=== PATIENT | female | born 1955 | race Caucasian/White ===

== ENCOUNTER 2022-08-16 07:27 | Emergency (ER) | payer MEDICARE, SELFPAY ==
[2022-08-16 07:38] VITALS: BP 128/76; PULSE 84; RESP 16; O2SAT 100; BMI 29.2
--- NOTE | 2022-08-16 07:45 | ED_ITS ---
HPI - Extremity Injury (Lower) General: Chief Complaint: Extremity Injury, Lower Stated Complaint: groin pain, left leg numbness Time Seen by Provider: 08/16/22 07:30 Source: patient Mode of arrival: wheelchair Limitations: no limitations History of Present Illness: Patient is a 67-year-old female presents to ED today with a complaint of left hip pain. She states 2 days ago she was getting into a vehicle and states as she was rotating her body to get into the vehicle she heard a pop in her left hip. She states following this they had went to the park to do some walking and states she walked about 0.5 miles before the pain became too bad that she had to be helped back to the vehicle. Patient states pain has persisted since that initial injury. She complains of some paresthesias to her anterior medial left thigh. She has not noticed any color/temperature changes to the extremity. She does not have any pain apart from her hip joint. Denies back pain. MD complaint: hip injury Onset (ago): day(s) Injury: Left: hip Place: street/outdoors Severity: moderate Relieving factors: immobilization Exacerbating factors: weight bearing and movement Associated symptoms: Reports no associated symptoms Other symptoms: none Review of Systems Const: Denies: fever(s), chills, body aches, fatigue or malaise Card: Denies: chest pain Resp: Denies: dyspnea GI: Denies: abdominal pain Musc: Reports: joint pain (L hip); Denies: neck pain, back pain, extremity pain, extremity swelling, joint swelling, joint redness or joint warmth Skin/Breast: Denies: rash Neuro: Reports: difficulty walking (secondary to pain); Denies: headache(s), numbness in extremities, weakness in extremities, sensory changes or frequent falls Physical Exam Const: COMMON NORMALS: no acute distress, average body habitus, patient oriented x3, no limitations, healthy appearing, alert and well nourished GENERAL APPEARANCE: cooperative ORIENTATION/CONSCIOUSNESS: Yes awake, Yes oriented to person, Yes oriented to place and Yes oriented to time Resp: COMMON NORMALS: normal respiratory effort and clear to auscultation bilaterally AUSCULTATION: clear to auscultation bilaterally Cardio: COMMON NORMALS: regular rate and regular rhythm RATE: regular rate RHYTHM: regular rhythm GI: COMMON NORMALS: Normal to inspection, nondistended, normoactive bowel sounds present, Soft to palpation and non-tender PALPATION: Yes Soft to palpation : COMMON NORMALS: Yes no CVA tenderness BLADDER/KIDNEY EXAM: Yes no CVA tenderness Back/Pelvis: COMMON NORMALS: no CVA tenderness, thoracic and lumbar spine normal to inspection, no thoracic nor lumbar tenderness and straight leg raise negative bilaterally THORACIC SPINE/UPPER BACK: No thoracic spinal tenderness, No paraspinal muscle tenderness and No paraspinal muscle spasm LUMBAR SPINE/LOWER BACK: No lumbar spinal tenderness, No paraspinal muscle tenderness, No paraspinal muscle spasm and Yes straight leg raise negative bilaterally PELVIS: Yes buttock abnormal Buttock abnormal laterality: left Left buttock abnormal details: tenderness and Yes sciatic notch tenderness SACROILIAC JOINTS: Yes SI joint(s) abnormal SI joint details: tender to palpation SACRUM: no tenderness COCCYX: no tenderness Extremity: COMMON NORMALS: normal to inspection, capillary refill normal, no joint enlargement, no clubbing, cyanosis or edema, no calf tenderness and no pedal edema GENERAL: Yes normal exam except as noted LEFT LOWER EXTREMITY: Yes hip joint (TTP L groin as well and posteriorly; no lateral tenderness) Left hip: Yes ROM (full ROM but painful flexion and rotational movements ) and Yes neurovascular exam (normal) OTHER: DP/PT pulses are easily palpable; cap refill is brisk Neuro: COMMON NORMALS: patient oriented x3, moves all extremities, no focal motor deficits and no sensory deficits noted SENSORIUM/ORIENTATION: Yes alert, Yes oriented to person, Yes oriented to place and Yes oriented to time GAIT: Yes Other gait observations present (was able to transfer from wheelchair to bed without assistance ) MOTOR EXAM: 5/5 motor strength present throughout Skin: COMMON NORMALS: no rashes or lesions noted GENERAL SKIN EXAM: no rashes or lesions noted Course Vital Signs: Vital signs: Vital Signs Pulse Rate 78 08/16/22 07:48 Respiratory Rate 16 08/16/22 07:48 Blood Pressure 128/76 08/16/22 07:48 Pulse Oximetry 100 08/16/22 07:48 Oxygen Delivery Me thod Room Air 08/16/22 07:48 MDM - Extremity Injury (Lower) Medical Decision Making XR negative. Will place on NSAIDS/steroids and get patient follow up with PCP. Return to ED precautions given. Discharge Plan Discharge Patient Disposition: Home Clinical Impression: Acute pain of left hip Condition: Stable Prescriptions: New Medrol (Osmin) 4 mg tablets,dose pack See Rx Instructions .ROUTE .COMPLEX Qty: 21 0RF Rx Instructions: orally per package directions naproxen 500 mg tablet 500 mg PO BID PRN (Reason: pain) Qty: 14 0RF Discharge Orders: Discharge ED (Routine); Ordered 08/16/22 Ordered By: Theodora Soto Activity Restrictions/Additional Instructions: As we discussed case management should contact you to get you set up with a primary care provider for further follow-up and evaluation of your left hip pain. You may use prescribed medications as directed for treatment. You may also use ice, heat, and gentle stretching. 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
--- NOTE | 2022-08-16 07:45 | XRR_ITS ---
PROCEDURE INFORMATION: Exam: XR Left Hip Exam date and time: 08/16/2022 7:50 AM Age: 67 years old Clinical indication: Injury or trauma; Fall; Blunt trauma (contusions or hematomas); Left; Hip; Additional info: Injury/pain; One view pelvis too please TECHNIQUE: Imaging protocol: Radiologic exam of the left hip. Views: 2 or 3 views hip with pelvis when performed. COMPARISON: No relevant prior studies available. FINDINGS: Bones/joints: The visualized pelvis is grossly intact. The hip joint maintains normal alignment. No proximal femoral fracture identified. Soft tissues: Unremarkable. XR/XR hip LT 2-3V wo/w pel* [id number] IMPRESSION: No fracture identified.
[2022-08-16 07:48] VITALS: BP 128/76; PULSE 78; RESP 16; O2SAT 100
[2022-08-16] MEDS: ketorolac 30 mg/mL INJ 15 MG IM (08:24)
[2022-08-16] MEDS: dexamethasone 10 mg/mL INJ 6 MG IM (08:25)
--- NOTE | 2022-08-16 10:16 | DCPLANNER ---
Addendum entered by Jennifer Sanchez 08/29/22 08:23: Patient had an appointment scheduled with Dr. Beasley at [facility] to est care - patient did attend appointment. Addendum entered by Jennifer Sanchez 08/24/22 08:59: This appointment was rescheduled Original Note: manager machine had message to speak with patient about getting established with a primary care physician. Case lexi spoke with patient, she stated that she would like help in getting established with a primary care physician. manager machine called [facility], spoke with Daya, gave clinic patients information. A follow up appointment was scheduled for patient for , August 23, 2022 at 1:[address] Frazier. manager machine gave patient the appointment information.
== END 2022-08-16 08:32 | disposition home or self-care (01) ==
PROVIDERS: Emergency Provider Physician Assistant
DX: M25.552 Pain in left hip (principal)
CPT/HCPCS: 73502; 96372; 99284; J1100; J1885

== ENCOUNTER → 2022-08-24 13:49 | Outpatient (BNVA) | payer MEDICARE, SELFPAY | PROVIDERS: Visit Provider Family Medicine | DX: E03.9 Hypothyroidism, unspecified (principal) | CPT/HCPCS: 80053; 80061; 81000; 84439; 84443; 85025 ==

== ENCOUNTER → 2022-09-24 14:59 | Outpatient (BNVA) | payer MEDICARE, SELFPAY | PROVIDERS: PCP Family Medicine; Referring Provider Family Medicine; Visit Provider Otolaryngology | DX: D11.9 Benign neoplasm of major salivary gland, unspecified (principal) | CPT/HCPCS: 99204; 99205 ==

== ENCOUNTER 2022-10-11 05:20 | Day surgery (SDC) | payer MEDICARE, MEDICAID, SELFPAY ==
[2022-10-10 15:53] VITALS: BMI 30.2
[2022-10-11] VITALS (9 sets, daily range): BP systolic 122–148; BP diastolic 49–74; PULSE 51–91; RESP 16–17; TEMP 37; O2SAT 90–100
[2022-10-11] MEDS: sodium chloride 0.9% 1,000 ML 30 ML IV (06:21)
--- NOTE | 2022-10-11 07:03 | P.ANESASSM_ITS ---
Pre-Anesthetic Assessment Height/Weight: Height 1.55 m Weight 72.575 kg Temp Pulse Resp BP Pulse Ox O2 Del Method 98.6 F 51 L 17 136/49 98 Room Air 10/11/22 06:08 10/11/22 06:08 10/11/22 06:08 10/11/22 06:08 10/11/22 06:08 10/11/22 06:08 Preop Diagnosis: Right parotid Warthin's tumor Operation Date: 10/11/22 07:50 Proposed Procedures p 15835- superficial lobe parotidectomy right ride with facial nerve dissection and preservation, D11.9(Not Applicable) - Antoine Champagne MD Familial anesthetic complications: none Was Beta Phu taken within 24 hours: N/A Was Clonidine taken within 24 hours: N/A Last intake: Intake Last Liquid Date 09/30/22 Last Liquid Time 09:00 Last Solid Date 10/10/22 Last Solid Time 18:30 Social Tobacco and No alcohol Exam alert, oriented x 3, clear to auscultation bilaterally and regular rate & rhythm Airway Mallampati: Class II Dentition: full CV/HEM states had mild MS in april, stayed one night in hospital. No interventions, no medicines. 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 patient states no CP, SOB, syncope and is able to achieve > 4 METS without cardiac symptoms Metabolic Hyperlipidemia and Thyroid Disease Anesthetic Plan ASA status: 3 Anesthesia: General Risk of > 500 ml blood loss (7ml/kg in children): No Medications/Allergies Home Medications Medication Instructions Recorded Confirmed Last Taken Type naproxen 500 mg tablet 500 mg PO BID 08/24/22 10/10/22 Unknown History ropinirole 0.25 mg tablet 0.25 mg PO .qhs #30 tabs 08/24/22 10/10/22 Unknown Rx atorvastatin 40 mg tablet (Lipitor) 40 mg PO DAILY #90 tabs 08/27/22 10/11/22 10/10/22 06:30 Rx levothyroxine 50 mcg tablet 50 mcg PO DAILY #90 tabs 08/27/22 10/11/22 10/10/22 06:30 Rx (Synthroid) Allergies Allergy/AdvReac Type Severity Reaction Status Date / Time No Known Allergies Allergy Verified 10/11/22 06:05 Current Medications Generic Name Dose Route Start Last Admin Trade Name Sushila PRN Reason Stop Dose Admin Sodium Chloride 1,000 mls @ 30 mls/hr 10/11/22 06:00 10/11/22 06:21 Sodium Chloride 0.9% IV 10/12/22 05:59 30 mls/hr .Q24H ALEXI Administration PFSH Anesthesia Medical History Chronic arthritis Degenerative disc disease Fibromyalgia History of basal cell cancer History of heart attack 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 25PY no desire to quit] Alcohol intake: current Alcohol intake frequency: holidays/special occasions only Substance/Drug Use: never Lives independently: Yes Marital status: / Current occupational status: unemployed Special asif needs: No Agree to transfusion: Yes Data Anesthesia Cardiac Studies: No Data to Display
--- NOTE | 2022-10-11 07:31 | W.PM.OPSUD ---
Surgery/Procedure H&P Update DATE OF PROCEDURE: October 11, 2022 DATE H&P PERFORMED: 09/24/22 H&P UPDATE INFORMATION: I have reviewed H&P completed within last 30 days, I have examined patient prior to procedure and No changes to prior documentation CHANGES TO PREVIOUS DOCUMENTATION: No changes PREOP DIAGNOSIS: Right parotid Warthin's tumor PRIMARY INDICATION FOR PROCEDURE: Right parotid Warthin's tumor PLANNED PROCEDURE: Operation Date: 10/11/22 07:50 Proposed Procedures p 72827- superficial lobe parotidectomy right ride with facial nerve dissection and preservation, D11.9(Not Applicable) - Antoine Champagne MD
[2022-10-11] MEDS: ceFAZolin 2,000 MG in sodium chloride 0.9% (plus) 50 ML 100 MG IV (07:52)
[2022-10-11] MEDS: lidocaine-epi 2% 1.7mL Cartridge (OR Only) 8 ML XX (08:21)
[2022-10-11] MEDS: neomycin-poly-bacitracin oint 28 gm 1 APPLIC TOPICAL (08:33)
--- NOTE | 2022-10-11 10:06 | P.OP_ITS ---
Operative Report Date of procedure: October 11, 2022 Pre-op diagnosis: Preop Diagnosis Right parotid Warthin's tumor Post-op diagnosis: Same Post-op findings: Lobulated right infra parotid Warthin's tumor Procedure done: Right superficial parotidectomy with facial nerve dissection and preservation Implants: Quarter inch [place] drain Specimens removed/disposition: Right lateral parotid gland with Warthin's tumor Pathology: Same Surgeon: Antoine Champagne MD Anesthesia: General and Local Estimated blood loss: 100 mL Complications: No complications encountered Findings: Right lateral parotid gland Warthin's tumor based on scans and fine-needle aspiration. Brief History: 67-year-old female patient with a right parotid gland mass. Previous fine- needle aspiration revealed Warthin's tumor. Patient being brought to the operating room at this time to undergo right lateral parotidectomy with facial nerve dissection and preservation. The procedure its risks and complications have been explained in detail to the patient. These risks include bleeding infection numbness scarring swelling bruising recurrence need for additional treatment potential weakness or paralysis of any or all branches of the facial nerve as well as numbness of the ear and face and postauricular area which could be temporary or permanent. Potential gustatory sweating or fistula formation and more serious risk such as heart attack or stroke or not surviving the surgery. There also will likely be some degree of cosmetic change. With these things understood informed consent was granted and witnessed. Procedure: SheDescription of procedure: The patient was placed on the operating table in the supine position. Adequate general endotracheal tube anesthesia was obtained . Had a Crump catheter placed to the bladder. She received Ancef IV for prophylaxis. A timeout was accomplished identifying the patient date of plan procedure allergies fire risk and medications given. With all in agreement the procedure continued. Sign the site was noted. The patient was placed into a semirecumbent position. The face was cleansed and the area of the local injection plan. The planned incision area was infiltrated with a total of 5.1 mL of 2% Xylocaine with 1-100,000 epinephrine. The patient was then prepped and draped in usual fashion. A marking pen was used to outline the incision extending from the preauricular crease around the ear lobule and then curving into the mid neck skin crease line. The incision was created with a 15 blade carrying it down to the subcutaneous fat layer. Then the cut and coagulation mode of the Bovie were used to dissected down to the parotid fascia layer. The skin flap was raised in that plane to the anterior limits of the parotid gland. Then attention was turned to identifying the greater auricular nerve and preserving it until it inserted into the parotid gland itself. Then careful dissection was carried out from the lateral to medial direction using the tragal pointer to identify the main trunk of the facial nerve. Once this was identified with careful dissection the nerve was followed for superiorly to its extent beyond the parotid gland. This was done first with the upper 2 branches then the buccal branch was followed to its insertion and the lower branches were also followed to the exit out of the parotid gland. Hemostasis was attained carefully with the bipolar cautery after any active bleeding was noted. Ooze was controlled simply by pressure. After the gland was removed the area was irrigated with sterile water. The [place] drain was cut to size and placed to the depths over the main trunk of the facial nerve exiting the anteriormost aspect of the neck incision. This was stapled to the skin. Then the incision was closed in 2 layers using interrupted 4-0 chromic to close the subcutaneous layer. Then the skin was closed with skin july from the drain site up to the ear lobule area. The skin of the face was then closed with a running simple 5-0 nylon suture. After closure the area was cleansed with sponges and Neosporin ointment was applied. Then drapes were removed. Telfa and multiple layers of fluffs were placed over the neck to apply pressure over the face and neck. Then who Kerlix rolls were wrapped around the neck and over the forehead to apply a pressure dressing. This was taped in place. The patient was then returned to anesthesia for extubation. Patient tolerated the procedure well had an estimated blood loss of 100 mL and arrived in recovery in stable condition.
[2022-10-11] MEDS: fentaNYL 50 mcg/mL INJ 2mL IVP (10:20)
[2022-10-11] MEDS: ondansetron 2 mg/ML SDV 2 mL 4 MG IVP (10:22)
[2022-10-11] MEDS: TRAMadol 50 mg Tablet PO (11:07)
--- NOTE | 2022-10-11 12:49 | ANE.PACU2 ---
Inpatient post-anesthesia follow up: Airway intact: Yes Vital signs: Temperature 98.6 F Pulse Rate 89 Respiratory Rate 16 Blood Pressure 148/74 Pulse Oximetry 94 Oxygen Delivery Me thod Room Air Oxygen Flow Rate 4 Fraction of Inspir ed Oxygen Hydration adequate: Yes Nausea and vomiting: No Pain level: 1 Mental status: Baseline
== END 2022-10-11 11:52 | disposition home or self-care (01) ==
PROVIDERS: PCP Family Medicine; Visit Provider Otolaryngology
PROC: (CPT 42410; principal; 2022-10-11 07:40)
DX: D11.9 Benign neoplasm of major salivary gland, unspecified (principal); E78.5 Hyperlipidemia, unspecified; E03.9 Hypothyroidism, unspecified; F17.210 Nicotine dependence, cigarettes, uncomplicated
CPT/HCPCS: 42415; 51702; 88309; J0690; J1100; J2370; J2405; J2704; J3010; J3490; J7030; P9045

== ENCOUNTER 2022-10-13 07:20 | Emergency (ER) | payer MEDICARE, MEDICAID, SELFPAY ==
[2022-10-13 07:24] VITALS: BP 137/65; PULSE 83; RESP 17; TEMP 36.9; O2SAT 99; BMI 29.2
--- NOTE | 2022-10-13 07:34 | ED_ITS ---
HPI - Ear Problem General: Chief complaint: Ear Stated complaint: wound dressing problems Time Seen by Provider: 10/13/22 07:34 Source: patient Mode of arrival: ambulatory History of Present Illness: 67-year-old female who presents emergency room with a complaint of neck discomfort. She is 1 day postop excision of a Warthin's tumor on the right by Dr. Champagne she has some drainage and some neck discomfort states the tramadol t hat she was prescribed at the time of discharge is not adequately controlling her pain she denies fever sweats chills she able to speak and swallow without difficulty. She does have a Braeden drain in place which has moderate drainage on the bandage. Associated symptoms: Reports neck pain; Denies ear or mastoid pain, external ear pain, fever(s), headache(s), hearing loss, rhinorrhea or tinnitus Review of Systems Const: Denies: fever(s) or chills ENMT: Denies: ear or mastoid pain or tinnitus Card: Denies: chest pain Resp: Denies: dyspnea GI: Denies: abdominal pain, nausea or vomiting : Denies: flank pain, difficulty voiding, dysuria, urinary frequency or urinary urgency Musc: Reports: neck pain Skin/Breast: Denies: rash or pruritus Neuro: Denies: headache(s) PFSH ED PFSH: Medical History Chronic arthritis Degenerative disc disease Fibromyalgia History of basal cell cancer History of heart attack 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 25PY no desire to quit] Alcohol intake: current Alcohol intake frequency: holidays/special occasions only Substance/Drug Use: never Lives independently: Yes Marital status: / Current occupational status: unemployed Special asif needs: No Agree to transfusion: Yes Physical Exam Const: COMMON NORMALS: no acute distress GENERAL APPEARANCE: cooperative and comfortable ORIENTATION/CONSCIOUSNESS: Yes awake, Yes oriented to person, Yes oriented to place and Yes oriented to time HENMT: COMMON NORMALS: normocephalic, atraumatic and hearing grossly normal bilaterally HEAD & SCALP: normocephalic and atraumatic Neck/C-Spine: OTHER: Bulky Kerlix and Telfa dressing on incision on the right side of the neck dressing removed wound well approximated moderate drainage from the [place] drain on the Telfa no purulence no redness no erythema no fluctuant area. Resp: COMMON NORMALS: normal respiratory effort, No retractions, No use of accessory muscles and clear to auscultation bilaterally AUSCULTATION: clear to auscultation bilaterally Cardio: COMMON NORMALS: regular rate, regular rhythm and No murmurs present (Cardio) RATE: regular rate RHYTHM: regular rhythm GI: COMMON NORMALS: Soft to palpation and No hepatosplenomegaly present AUSCULTATION: Yes normoactive bowel sounds PALPATION: Yes Soft to palpation, No Tenderness to palpation present (GI), No Guarding due to palpation present (GI) and Yes No hepatosplenomegaly present Extremity: COMMON NORMALS: normal to inspection, capillary refill normal, no clubbing, cyanosis or edema, no calf tenderness and no pedal edema Neuro: SENSORIUM/ORIENTATION: Yes oriented to person, Yes oriented to place and Yes oriented to time Skin: COMMON NORMALS: no rashes or lesions noted GENERAL SKIN EXAM: no rashes or lesions noted Course Vital Signs: Vital signs: Vital Signs Temperature 98.4 F 10/13/22 07:24 Pulse Rate 83 10/13/22 07:24 Respiratory Rate 17 10/13/22 07:24 Blood Pressure 137/65 10/13/22 07:24 Pulse Oximetry 99 10/13/22 07:24 Oxygen Delivery Me thod Room Air 10/13/22 07:24 MDM - Ear Medical Decision Making Dressing changed. Gave patient prescription for hydrocodone to use for pain continue discharge instructions given by Dr. Champagne and follow-up with Ihsan as previously advised Medical Records I reviewed the patient's medical records. Lab Data I reviewed the patient's lab results. Discharge Plan Discharge Patient Disposition: Home Clinical Impression: Warthin tumor Condition: Stable Prescriptions: New hydrocodone-acetaminophen 5-325 mg tablet 1 tab PO Q6H PRN (Reason: pain) Qty: 15 0RF promethazine 25 mg tablet 25 mg PO Q6H PRN (Reason: nausea and vomiting) Qty: 12 0RF No Action naproxen 500 mg tablet 500 mg PO BID ropinirole 0.25 mg tablet 0.25 mg PO .qhs Qty: 30 0RF atorvastatin [Lipitor] 40 mg tablet 40 mg PO DAILY Qty: 90 1RF levothyroxine [Synthroid] 50 mcg tablet 50 mcg PO DAILY Qty: 90 0RF tramadol 50 mg tablet 50 mg PO Q6H PRN (Reason: pain) Qty: 30 0RF cephalexin 500 mg capsule 500 mg PO TID 10 Days Qty: 30 0RF Discharge Orders: Discharge ED (Routine); Ordered 10/13/22 Ordered By: Nicholas Sanders Referrals: Toan Beasley MD [Primary Care Provider] - Patient Instructions: Opioid Safety, Pain Management Activity Restrictions/Additional Instructions: You may use hydrocodone instead of tramadol. Promethazine for nausea or vomiting. Continue wound care as per Dr. Champagne previous discharge instructions follow-up with Dr. 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
--- NOTE | 2022-10-13 08:05 | PC.NURSE ---
pt wound redressed
== END 2022-10-13 08:10 | disposition home or self-care (01) ==
PROVIDERS: Emergency Provider Family Medicine; PCP Family Medicine
DX: D11.9 Benign neoplasm of major salivary gland, unspecified (principal); F17.210 Nicotine dependence, cigarettes, uncomplicated; Z85.89 Personal history of malignant neoplasm of other organs and systems; Z85.828 Personal history of other malignant neoplasm of skin
CPT/HCPCS: 99283

== ENCOUNTER → 2022-10-15 12:57 | Outpatient (BNVA) | payer MEDICARE, MEDICAID, SELFPAY | PROVIDERS: PCP Family Medicine; Visit Provider Otolaryngology | DX: Z48.89 Encounter for other specified surgical aftercare (principal); D11.9 Benign neoplasm of major salivary gland, unspecified | CPT/HCPCS: 99024 ==

== ENCOUNTER → 2022-10-19 11:04 | Outpatient (BNVA) | payer MEDICARE, MEDICAID, SELFPAY | PROVIDERS: PCP Family Medicine; Visit Provider Otolaryngology | DX: Z48.89 Encounter for other specified surgical aftercare (principal); D11.9 Benign neoplasm of major salivary gland, unspecified | CPT/HCPCS: 99024 ==

== ENCOUNTER → 2022-11-19 13:26 | Outpatient (BNVA) | payer MEDICARE, MEDICAID, SELFPAY | PROVIDERS: PCP Family Medicine; Visit Provider Otolaryngology | DX: Z48.89 Encounter for other specified surgical aftercare (principal); D11.9 Benign neoplasm of major salivary gland, unspecified | CPT/HCPCS: 99024 ==

== ENCOUNTER → 2022-12-31 13:16 | Outpatient (BNVA) | payer MEDICARE, MEDICAID, SELFPAY | PROVIDERS: PCP Family Medicine; Visit Provider Otolaryngology | DX: H91.90 Unspecified hearing loss, unspecified ear (principal); H93.11 Tinnitus, right ear | CPT/HCPCS: 99213 ==

== ENCOUNTER → 2023-01-10 13:30 | Outpatient (BNVA) | payer MEDICARE, MEDICAID, SELFPAY | PROVIDERS: PCP Family Medicine; Visit Provider Family Medicine | DX: M79.7 Fibromyalgia (principal) | CPT/HCPCS: 84439; 84443 ==

== ENCOUNTER → 2023-07-10 14:00 | Outpatient (BNVA) | payer MEDICARE, MEDICAID, SELFPAY | PROVIDERS: PCP Family Medicine; Referring Provider Family Medicine; Visit Provider Surgery | DX: K29.70 Gastritis, unspecified, without bleeding; R19.7 Diarrhea, unspecified | CPT/HCPCS: 99204 ==

== ENCOUNTER 2023-07-17 13:33 | Outpatient (CLI) | payer MEDICARE, MEDICAID, SELFPAY ==
--- NOTE | 2023-07-17 14:00 | MM_ITS ---
WS: [id number] BILATERAL SCREENING DIGITAL TOMOSYNTHESIS MAMMOGRAM WITH CAD HISTORY: breast CA screening COMPARISON: 12/14/2016 Bilateral CC and MLO views with tomosynthesis and synthetic mammography submitted. Computer aided det ection analyzed. Breast composition: There are scattered areas of fibroglandular density. No suspicious masses, microc alcifications or architectural distortion. Benign calcifications in each breast. IMPRESSION: MM/[place] [id number] BI-RADS: 2-Benign FOLLOW UP: 1 Year Follow-up
== END 2023-07-17 13:34 | disposition home or self-care (01) ==
LOC: RAD 13:33
PROVIDERS: PCP Family Medicine; Visit Provider Family Medicine
DX: Z12.31 Encounter for screening mammogram for malignant neoplasm of breast
CPT/HCPCS: 77063; 77067

== ENCOUNTER 2023-07-26 11:57 | Outpatient (CLI) | payer MEDICARE, MEDICAID, SELFPAY ==
--- NOTE | 2023-07-26 17:30 | CT_ITS ---
WS: [id number] LDCT LUNG CANCER SCREENING TECHNIQUE: Noncontrast CT of the chest with coronal and sagittal reformatted images. CLINICAL INFORMATION: lung cancer screening COMPARISON: None. DLP: 65.19 mGy.cm DIvol: Mean CTDIvol: 1.20 (mGy) All CT scans at [facility] use at least one of these dose optimization techniques: automat ed exposure control; mA and/or kV adjustment per patient size (includes targeted exams where dose is matched to clinical indication); or iterative reconstruction. FINDINGS: Calcified granulomas. Centrally calcified 4 mm noncalcified RIGHT upper lobe nodule. Small subpleural nodule RIGHT lower lobe measuring 3 mm. RIGHT upper lobe nodule laterally measuring 4 mm. Noncalcified nodule LEFT upper lobe measuring 5 mm. RIGHT upper lobe nodule measuring 6 mm. Noncalcif ied subpleural nodule LEFT lower lobe measuring 4 mm. Aortic calcification. Coronary calcification. No mediastinal or hilar lymphadenopathy. No axillary ly mphadenopathy. Cholecystectomy clips. Adrenal glands are normal. Splenic artery calcification. Splenic granulomas. M ild thoracic curve. Mild thoracic kyphosis. Hypertrophic changes thoracic spine. Partially visualized low-attenuation lesion LEFT kidney with lobulated LEFT kidney. Recommend further evaluation with ult rasound or contrast-enhanced CT abdomen pelvis. IMPRESSION: 1. Numerous bilateral subcentimeter pulmonary nodules some of which are calcified. A few noncalcifie d nodules largest measuring 4 to 5 mm. 2. Partially visualized low-attenuation lesion LEFT kidney with lobulated LEFT kidney. Recommend fur ther evaluation with ultrasound or contrast-enhanced CT abdomen pelvis. CT/CT lung screening [id number] LUNG-RADS: 2S-Benign Appearance or Behavior with Significant Findings FOLLOW UP: 12 Month: Continue annual screening with LDCT
== END 2023-07-26 11:58 | disposition home or self-care (01) ==
LOC: RAD 11:58
PROVIDERS: PCP Family Medicine; Visit Provider Family Medicine
DX: Z12.2 Encounter for screening for malignant neoplasm of respiratory organs (principal); F17.219 Nicotine dependence, cigarettes, with unspecified nicotine-induced disorders
CPT/HCPCS: 71271

== ENCOUNTER → 2023-08-10 12:49 | Outpatient (BNVA) | payer MEDICARE, MEDICAID, SELFPAY | PROVIDERS: PCP Family Medicine; Visit Provider Family Medicine | DX: R39.9 Unspecified symptoms and signs involving the genitourinary system (principal); N39.0 Urinary tract infection, site not specified | CPT/HCPCS: 81000; 87086 ==

== ENCOUNTER 2023-08-12 15:11 | Outpatient (CLI) | payer MEDICARE, MEDICAID, SELFPAY ==
--- NOTE | 2023-08-12 15:15 | US_ITS ---
WS: [id number] RENAL ULTRASOUND HISTORY: LEFT kidney lobules seen on LDCT COMPARISON: None available. TECHNIQUE: 2-D and color Doppler imaging of the kidney submitted. Right kidney: 9.3 cm x 4.5 cm x 4.3 cm. Cortex: 1.0 cm Normal echogenicity with no hydronephrosis or mass. Left kidney: 9.4 cm x 3.7 cm x 4.3 cm. Cortex: 1.0 cm Normal size kidney. Cortical cyst upper pole measures 1.4 cm. No solid mass. No obstruction. Aorta: Normal. Urinary Bladder: Normal distention. IMPRESSION: 1. Normal size kidneys with no hydronephrosis. 2. Small cortical cyst upper pole LEFT kidney 1.4 cm.
== END 2023-08-12 15:12 | disposition home or self-care (01) ==
LOC: RAD 15:11
PROVIDERS: PCP Family Medicine; Visit Provider Family Medicine
DX: N28.89 Other specified disorders of kidney and ureter (principal); N28.1 Cyst of kidney, acquired
CPT/HCPCS: 76770

== ENCOUNTER 2023-09-24 15:02 | Emergency (ER) | payer MEDICARE, MEDICAID, SELFPAY ==
[2023-09-24 15:03] VITALS: BP 148/76; PULSE 80; RESP 15; TEMP 36.6; O2SAT 98; BMI 29.4
[2023-09-24 15:37] LABS: Basophils % 0.5 %; Eosinophils # 0.2 10^3/uL (0.0-0.8); Eosinophils % 2.5 %; Hematocrit 41.4 % (36-47); Lymphocytes # 2.2 10^3/uL (0.8-4.8); Lymphocytes % 29.1 %; Mean Corpuscular HGB Conc 32.6 g/dL (30-55); Mean Corpuscular Hemoglobin 32.9 pg (27-33); Mean Platelet Volume 10.2 fL (7.4-10.4); Monocytes # 0.9 10^3/uL (0.2-0.9); Monocytes % 11.7 %; Neutrophils # 4.27 10^3/uL (1.8-7.7); Neutrophils % 55.9 %; Nucleated Red Blood Cells % 0 %; Platelet Count 253 10^3/cmm (157-399); Red Cell Distribution Width 12.4 % (12.1-15.1); White Blood Count 7.63 10^3/uL (3.29-11.43)
[2023-09-24 15:56] LABS: Alanine Aminotransferase 12 U/L (0-33); Albumin Level 4.2 g/dL (3.5-5.2); Alkaline Phosphatase 143 U/L (35-105); Anion Gap 17.2 (5-19); Aspartate Amino Transferase 16 U/L (0-32); Blood Urea Nitrogen 11 mg/dL (8-23); Calcium 9.4 mg/dL (8.5-10.5); Carbon Dioxide 24 mmol/L (22-29); Chloride 104 mmol/L (98-107); Creatinine Clr Calc Pharmacy 47.0727; Globulin 3.5 g/dL (1.3-4.6); Glomerular Filtration Rate 49.7 mL/min (90-130); Glucose 97 mg/dL (65-115); Lipase 71 U/L (13-60); Osmolality Calculated 291 mOsm/kg (285-295); Potassium 4.2 mmol/L (3.5-5.1); Sodium 141 mmol/L (136-145); Total Bilirubin 0.6 mg/dL (0.15-1.2); Total Protein 7.7 g/dL (6.6-8.7)
--- NOTE | 2023-09-24 16:33 | ED_ITS ---
HPI - Abdominal Pain 2 General: Chief Complaint: Abdominal Pain Stated Complaint: cant keep anything down/ hasnt eatten since Sat Time Seen by Provider: 09/24/23 16:29 History of Present Illness: 68-year-old female with history of fibro myalgia, hypothyroidism who presents to the emergency room with chronic diarrhea and vomiting. She said this been going on for several months now. She says her primary cannot really figure it out but she does have a colonoscopy and endoscopy scheduled in the near future. She was taking some medications that may have helped some but they have stopped. She says has gotten quite a bit worse over the last few days. She is moaning. She says her upper abdominal area is painful. Nothing focal. Vitals are normal on presentation. Review of Systems 2 Narrative: Constitutional symptoms: Negative except as documented in HPI. Skin symptoms: Negative except as documented in HPI. Eye symptoms: Negative except as documented in HPI. ENMT symptoms: Negative except as documented in HPI. Respiratory symptoms: Negative except as documented in HPI. Cardiovascular symptoms: Negative except as documented in HPI. Gastrointestinal symptoms: Negative except as documented in HPI. Genitourinary symptoms: Negative except as documented in HPI. Musculoskeletal symptoms: Negative except as documented in HPI. Neurologic symptoms: Negative except as documented in HPI. Psychiatric symptoms: Negative except as documented in HPI. Endocrine symptoms: Negative except as documented in HPI. 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 25PY no desire to quit] Alcohol intake: current Alcohol intake frequency: holidays/special occasions only Substance/Drug Use: never Lives independently: Yes Marital status: / Current occupational status: unemployed Special asif needs: No Agree to transfusion: Yes Physical Exam 2 Narrative: EXAM NARRATIVE: General: Alert, no acute distress. Skin: Warm, dry. Head: Normocephalic, atraumatic. Neck: Supple, trachea midline. Eye: Extraocular movements are intact. Ears, nose, mouth and throat: Tacky oral mucosa Cardiovascular: Regular, Normal peripheral perfusion. Respiratory: Lungs are clear to auscultation, respirations are non-labored, breath sounds are equal, Symmetrical chest wall expansion. Gastrointestinal: Soft, mild generalized abdominal pain, Non distended, Normal bowel sounds. Musculoskeletal: Normal ROM, no deformity. Neurological: Alert and oriented, No focal neurological deficit observed. Psychiatric: Cooperative, appropriate mood & affect. Course 2 Vital Signs: Vital signs: Vital Signs Temperature 97.8 F 09/24/23 15:03 Pulse Rate 80 09/24/23 18:48 Respiratory Rate 15 09/24/23 15:03 Blood Pressure 142/74 09/24/23 18:48 Pulse Oximetry 98 09/24/23 18:48 Oxygen Delivery Me thod Room Air 09/24/23 17:54 MDM - Abdominal Pain Medical Decision Making Medical decision making: Differential diagnosis including but not limited to and based on the above HPI, review of systems and physical exam: Basic lab work and urinalysis ordered to rule out renal failure. Hepatitis. Pancreatitis. Ultimately a CT was ordered to evaluate. Orders placed to evaluate differential diagnosis based on the above differential, HPI and physical exam Lab Review: Laboratory results were reviewed and interpreted by myself the emergency room physician. Lab work is unremarkable. White count is 7. Hemoglobin 13.5. BUN/creatinine 11 and 1.1. LFTs are normal. Lipase is normal. Urinalysis is clear. CT of the abdomen pelvis: Patient has some diverticulosis but no diverticulitis. No obstructions. No renal stones. No acute findings. This was reviewed and interpreted by myself the emergency room physician. I also reviewed the radiology report. I reviewed the patient's medical record. Reexamination: Patient appears much calmer on my entrance later. She says Ativan is the only thing that really helped today. She says she feels much better now. I discussed I will write some Ativan for her but I do not want her to take it more than once every 2 to 3 days and explained that it can be habit-forming and could make symptoms worse if she took all and ran out. No increased work of breathing. Abdominal pain seems resolved. No focal motor deficits. No altered mental status. Assessment and plan: Chronic abdominal pain Chronic diarrhea Chronic vomiting Dehydration -IV fluids, IV Pepcid, IV Zofran. Then IV Ativan. - Discharged home - Discussed findings and plan with patient. Answered any questions. - All laboratory values were reviewed and interpreted personally by myself, the ER physician - All imaging was reviewed and interpreted personally by myself, the ER physician. - Evaluation and treatment of this problem were appropriate in the emergency setting Lab Data 09/24/23 15:27 09/24/23 15:27 Labs/Radiology: Radiology Impressions Abdomen/Pelvis CT 09/24/23 16:36 IMPRESSION: 1. No acute findings. 2. Sigmoid diverticulosis Laboratory Results WBC 7.63 10^3/uL (3.29-11.43) 09/24/23 15: RBC 4.10 10^6/uL (3.85-5.65) 09/24/23 15: Hgb 13.50 g/dL (11.27-16.99) 09/24/23 15: Hct 41.4 % (36-47) 09/24/23 15: MCV 101.0 fl (85-98) H 09/24/23 15: MCH 32.9 pg (27-33) 09/24/23 15: MCHC 32.6 g/dL (30-55) 09/24/23 15:27 RDW 12.4 % (12.1-15.1) 09/24/23 15: Plt Count 253 10^3/cmm (157-399) 09/24/23 15: MPV 10.2 fL (7.4-10.4) 09/24/23 15: Neut % (Auto) 55.9 % 09/24/23 15: Lymph % (Auto) 29.1 % 09/24/23 15: Moffat % (Auto) 11.7 % 09/24/23 15: Eos % (Auto) 2.5 % 09/24/23 15: Baso % (Auto) 0.5 % 09/24/23 15: Neut # (Auto) 4.27 10^3/uL (1.8-7.7) 09/24/23 15: Lymph # (Auto) 2.2 10^3/uL (0.8-4.8) 09/24/23 15: Moffat # (Auto) 0.9 10^3/uL (0.2-0.9) 09/24/23 15: Eos # (Auto) 0.2 10^3/uL (0.0-0.8) 09/24/23 15: Baso # (Auto) 0.0 10^3/uL (0.0-0.1) 09/24/23 15: Nucleated RBC % (auto) 0 % 09/24/23 15: Nucleated RBCs # 0.0 /100WBC 09/24/23 15: Sodium 141 mmol/L (136-145) 09/24/23 15: Potassium 4.2 mmol/L (3.5-5.1) 09/24/23 15: Chloride 104 mmol/L (98-107) 09/24/23: Carbon Dioxide 24 mmol/L (22-29) 09/24/23: Anion Gap 17.2 (5-19) 09/24/23 15: BUN 11 mg/dL (8-23) 09/24/23 15: Creatinine 1.1 mg/dL (0.5-0.9) H 09/24/23 15: GFR Calculation 49.7 mL/min (90-130) L 09/24/23 15: Glucose 97 mg/dL (65-115) 09/24/23 15: Calculated Osmolality 291 mOsm/kg (285-295) 09/24/23: Calcium 9.4 mg/dL (8.5-10.5) 09/24/23 15: Total Bilirubin 0.6 mg/dL (0.15-1.2) 09/24/23 15: AST 16 U/L (0-32) 09/24/23 15: ALT 12 U/L (0-33) 09/24/23 15:27 Alkaline Phosphatase 143 U/L (35-105) H 09/24/23 15:27 Total Protein 7.7 g/dL (6.6-8.7) 09/24/23 15:27 Albumin 4.2 g/dL (3.5-5.2) 09/24/23 15: Globulin 3.5 g/dL (1.3-4.6) 09/24/23 15:27 Lipase 71 U/L (13-60) H 09/24/23 15:27 Urine Color Yellow (Yellow) 09/24/23 17:49 Urine Appearance Clear (CLEAR) 09/24/23 17:49 Urine pH 5 (5-7) 09/24/23 17:49 Ur Specific [place] 1.010 (1.005-1.030) 09/24/23 17:49 Urine Protein Neg (Negative) 09/24/23 17:49 Urine Glucose (UA) Norm (Normal) 09/24/23 17:49 Urine Ketones 1+ (Negative) H 09/24/23 17:49 Urine Blood 3+ (Negative) H 09/24/23 17:49 Urine Nitrate Negative (Negative) 09/24/23 17:49 Urine Bilirubin Neg (Negative) 09/24/23 17:49 Urine Urobilinogen Norm mg/dL (Negative) 09/24/23 17:49 Ur Leukocyte Esterase Negative (Negative) 09/24/23 17:49 Urine RBC 5-10 /hpf (0-2) H 09/24/23 17:49 Urine WBC 5-10 /hpf (0-5) H 09/24/23 17:49 Ur Squamous Epith Cells 5-10 /hpf (0-5) H 09/24/23 17:49 Ur Transition Epith Cell 0-4 /hpf 09/24/23 17:49 Amorphous Sediment Not Reportable 09/24/23 17:49 Urine Bacteria Trace /hpf (NONE) 09/24/23 17:49 Hyaline Casts 5-10 /lpf H 09/24/23 17:49 Urine Mucus None /hpf 09/24/23 17:49 Ur Oval Fat Bodies 3+ /hpf 09/24/23 17:49 All radiology interpretation(s) finalized by discharge Discharge Plan Discharge Patient Disposition: Home Clinical Impression: Chronic abdominal pain, Chronic diarrhea, Chronic vomiting, Dehydration Condition: Stable Prescriptions: New Carafate 1 gram tablet 1 g PO TID 28 Days Qty: 84 0RF Rx Instructions: with meals ondansetron 8 mg tablet,disintegrating 8 mg PO .q6 PRN (Reason: nausea and vomiting) Qty: 14 0RF Ativan 1 mg tablet 1 mg PO BID PRN (Reason: dizziness or vertigo) Qty: 20 0RF omeprazole 40 mg capsule,delayed release(DR/EC) 40 mg PO DAILY 28 Days Qty: 60 0RF No Action trazodone 50 mg tablet 75 mg PO DAILY Qty: 120 1RF Shingrix (PF) 50 mcg/0.5 mL suspension for reconstitution 0.5 ml IM ONCE Qty: 1 0RF levothyroxine [Synthroid] 50 mcg tablet 50 mcg PO DAILY Qty: 90 1RF atorvastatin [Lipitor] 40 mg tablet 40 mg PO DAILY Qty: 90 1RF nitrofurantoin monohyd/m-cryst [Macrobid] 100 mg capsule 100 mg PO Q12H 5 Days Qty: 10 0RF Rx Instructions: must administer with a meal/food diclofenac sodium [Voltaren Arthritis Pain] 1 % gel 4 g topical QID Qty: 100 1RF Rx Instructions: apply to single knee, ankle, foot; for foot includes sole/toes/top of foot fluticasone propionate [Flonase Allergy Relief] 50 mcg/actuation spray,suspension 2 spray intranasal DAILY Qty: 16 0RF Rx Instructions: administer into each nostril ropinirole 0.25 mg tablet 0.25 mg PO .qhs PRN (Reason: restless leg) Qty: 30 1RF sucralfate [Carafate] 1 gram tablet 1 g PO BID Qty: 84 0RF pantoprazole 40 mg tablet,delayed release (DR/EC) 40 mg PO BID Qty: 84 0RF conjugated estrogens 0.625 mg/gram cream 0.625 mg vaginal DAILY Qty: 30 1RF Rx Instructions: off 5 days; repeat cycle Discharge Orders: Discharge ED (Routine); Ordered 09/24/23 Ordered By: Consuelo Patterson Referrals: Toan Beasley MD [Primary Care Provider] - 4-7 days Patient Instructions: Irritable Bowel Syndrome (ED), Chronic Diarrhea (DC), Cyclic Vomiting Syndrome (ED) Activity Restrictions/Additional Instructions: Do not take the Ativan/lorazepam more than once every 2 to 3 days. Only when your symptoms are at their worst. This can become habit-forming and could make your symptoms worse if you take it too frequently. Thank you for choosing [facility] for your healthcare needs today. Please realize this is an emergency room and that we are providing you with a medical screening exam and this may not be complete and all inclusive of all the testing and or work up that you may need to determine your ailment or severity of your illness. You have been screened and evaluated and felt safe for discharge. Health conditions do change or evolve sometimes and as such it is important that you follow up with your Primary Doctor to be re checked, 3-5 days is a general good time frame for follow up. You are always welcome to return to the ED for re assessment if your symptoms are worsening or you have new concerns Coding Level of Care Code ED Dedicated [employer]
--- NOTE | 2023-09-24 16:36 | CTR_ITS ---
PROCEDURE INFORMATION: Exam: CT Abdomen And Pelvis With Contrast Exam date and time: 09/24/2023 5:02 PM Age: 68 years old Clinical indication: Patient HX: Patient denies any pain to me but says she has had nausea and has been unable to eat for weeks, patient very anxious. ; Additional info: Epigastric pain, vomiting TECHNIQUE: Imaging protocol: Computed tomography of the abdomen and pelvis with contrast. Radiation optimization: All CT scans at this facility use at least one of these dose optimization techniques: automated exposure control; mA and/or kV adjustment per patient size (includes targeted exams where dose is matched to clinical indication); or iterative reconstruction. Contrast material: OMNI 350; Contrast volume: 90 ml; Contrast route: INTRAVENOUS (IV); COMPARISON: CR XR hip LT 2-3V wo/w pel* [id number] 08/16/2022 7:50 AM RADIATION DOSE METRICS: Total DLP (mGy-cm): 590.55 FINDINGS: Lungs: Lung bases are clear. No pleural effusion. Liver: Normal. No mass. Gallbladder and bile ducts: The gallbladder has been resected. Pancreas: Normal. No ductal dilation. Spleen: Normal. No splenomegaly. Adrenal glands: Normal. No mass. Kidneys and ureters: Normal. No hydronephrosis. Stomach and bowel: Multiple diverticula involve the sigmoid colon. There is no sign of diverticulitis. Appendix: The appendix is clearly identified and is unremarkable. Intraperitoneal space: Unremarkable. No free air. No significant fluid collection. Vasculature: Unremarkable. No abdominal aortic aneurysm. Lymph nodes: Unremarkable. No enlarged lymph nodes. Urinary bladder: Unremarkable as visualized. Reproductive: Unremarkable as visualized. Bones/joints: Unremarkable. No acute fracture. Soft tissues: Unremarkable. CT/CT abdomen pelvis w con* [id number] IMPRESSION: 1. No acute findings. 2. Sigmoid diverticulosis
[2023-09-24] MEDS: sodium chloride 0.9% 1,000 ML 999 ML IV (16:51)
[2023-09-24] MEDS: famotidine 20 mg/2 mL INJ 40 MG IVP (16:52)
[2023-09-24] MEDS: ondansetron 2 mg/ML SDV 2 mL 8 MG IVP (16:54)
[2023-09-24] MEDS: iohexol 350 mg/mL 500 mL Btl (per mL) IV (17:15)
[2023-09-24] MEDS: LORazepam 2 mg/mL INJ 10 mL MDV 1 MG IV (17:50)
[2023-09-24 17:54] VITALS: BP 144/62; PULSE 83; O2SAT 96
[2023-09-24 18:30] LABS: Blood Urine 3+ (Negative); Glucose Urine UA Norm (Normal); Ketones Urine 1+ (Negative); Protein Urine Neg (Negative); Urine Appearance Clear (CLEAR); Urine Color Yellow (Yellow); pH Urine 5 (5-7)
[2023-09-24 18:31] LABS: Add Urine Microscopic? YES; Bilirubin Urine Neg (Negative); Leukocyte Esterase Urine Negative (Negative); Nitrate Urine Negative (Negative); Urobilinogen Urine Norm (Negative)
[2023-09-24 18:34] LABS: Bacteria Urine TRACE /hpf; Oval Fat Bodies Urine 3+ /hpf; Transitional Epi Cells Urine 0-4 /hpf
[2023-09-24 18:35] LABS: Add Urine Culture? No
[2023-09-24 18:48] VITALS: BP 142/74; PULSE 80; O2SAT 98
== END 2023-09-24 18:49 | disposition home or self-care (01) ==
PROVIDERS: Physician Assistant; Emergency Provider Emergency Medicine; PCP Family Medicine
DX: R10.9 Unspecified abdominal pain (principal); R19.7 Diarrhea, unspecified; R11.10 Vomiting, unspecified; E86.0 Dehydration; G89.29 Other chronic pain; F17.210 Nicotine dependence, cigarettes, uncomplicated
CPT/HCPCS: 36415; 74177; 80053; 81001; 83690; 85025; 96361; 96374; 96375; 99285; J2060; J2405; J3490; J7030; Q9967

== ENCOUNTER 2023-11-11 15:30 | Emergency (ER) | payer MEDICARE, MEDICAID, SELFPAY ==
[2023-11-11 15:33] VITALS: BP 149/68; PULSE 64; RESP 16; TEMP 36.7; O2SAT 100
--- NOTE | 2023-11-11 15:41 | XRR_ITS ---
PROCEDURE INFORMATION: Exam: XR Left Knee Exam date and time: 11/11/2023 4:10 PM Age: 68 years old Clinical indication: Injury or trauma; Fall; Blunt trauma; Knee; Left TECHNIQUE: Imaging protocol: Radiologic exam of the left knee. Views: 3 views. COMPARISON: No relevant prior studies available. FINDINGS: Bones/joints: No fracture or other acute abnormality. Minor degenerative changes are seen in the medial compartment. Soft tissues: Normal. XR/XR knee LT 3V* [id number] IMPRESSION: No acute findings.
--- NOTE | 2023-11-11 15:41 | XRR_ITS ---
PROCEDURE INFORMATION: Exam: XR Left Hip Exam date and time: 11/11/2023 4:10 PM Age: 68 years old Clinical indication: Injury or trauma; Fall; Blunt trauma (contusions or hematomas); Left; Hip TECHNIQUE: Imaging protocol: Radiologic exam of the left hip. Views: 2 or 3 views hip with pelvis when performed. COMPARISON: CT abdomen pelvis w con* [id number] 09/24/2023 5:02 PM FINDINGS: Bones/joints: Unremarkable. No acute fracture. Soft tissues: Unremarkable. XR/XR hip LT 2-3V wo/w pel* [id number] IMPRESSION: No acute findings.
--- NOTE | 2023-11-11 15:45 | W.ED.FALL ---
HPI - Fall General: Chief Complaint: Fall Stated Complaint: Fall injury to left knee Time Seen by Provider: 11/11/23 15:41 Source: patient Mode of arrival: EMS Limitations: no limitations History of Present Illness: 68-year-old female who states that she had tripped her front yard landing on her left hip states she feels like she may have strained a muscle she is having a sharp pain in her left hip that radiates down she was able to bear weight but states very painful to walk has had some slight left knee pain as well denies any other injuries from the fall denies hitting her head. 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 25PY no desire to quit] Alcohol intake: current Alcohol intake frequency: holidays/special occasions only Substance/Drug Use: never Lives independently: Yes Marital status: / Current occupational status: unemployed Special asif needs: No Agree to transfusion: Yes Physical Exam Const: COMMON NORMALS: no acute distress, patient oriented x3 and healthy appearing HENMT: COMMON NORMALS: normocephalic and atraumatic HEAD & SCALP: normocephalic and atraumatic Neck/C-Spine: COMMON NORMALS: full ROM and supple Chest: COMMONS NORMALS: normal inspection of the chest Resp: COMMON NORMALS: normal respiratory effort Cardio: COMMON NORMALS: regular rate, regular rhythm and No murmurs present (Cardio) RATE: regular rate RHYTHM: regular rhythm Extremity: COMMON NORMALS: full ROM NARRATIVE EXTREMITY EXAM: Slight tenderness to left hip no obvious deformity Neuro: COMMON NORMALS: patient oriented x3, moves all extremities and no focal motor deficits Psych: COMMON NORMALS: mental status grossly normal, Normal thought process present and cooperative THOUGHT PROCESS: Normal thought process present Skin: COMMON NORMALS: no rashes or lesions noted and no wounds GENERAL SKIN EXAM: no rashes or lesions noted Course Vital Signs: Vital signs: Vital Signs Temperature 98.0 F 11/11/23 15:33 Pulse Rate 64 11/11/23 15:33 Respiratory Rate 16 11/11/23 15:33 Blood Pressure 149/68 11/11/23 15:33 Pulse Oximetry 100 11/11/23 15:33 Oxygen Delivery Me thod Room Air 11/11/23 15:33 MDM - Fall Medical Decision Making Patient presents here with left hip pain from a fall imaging including CT here is all normal she was able to ambulate with crutches we will discharge her to follow-up with orthopedics she is to return if worsening show no other injuries from her fall. Medical Records I reviewed the patient's medical records. Lab Data Radiology Impressions Hip/Pelvis X-Ray 11/11/23 15:41 IMPRESSION: No acute findings. Knee X-Ray 11/11/23 15:41 IMPRESSION: No acute findings. Hip CT 11/11/23 17:06 IMPRESSION: No acute fracture. Lumbar Spine CT 11/11/23 17:06 IMPRESSION: 1. No acute fracture. 2. Grade 1 anterolisthesis of L4 onto L5. 3. [id number] lumbar spondylosis. All radiology interpretation(s) finalized by discharge Discharge Plan Discharge Patient Disposition: Home Clinical Impression: Contusion of left hip, Fall Condition: Stable Prescriptions: New hydrocodone-acetaminophen 5-325 mg tablet 1 tab PO Q6H PRN (Reason: pain) Qty: 14 0RF No Action trazodone 50 mg tablet 75 mg PO DAILY Qty: 120 1RF Shingrix (PF) 50 mcg/0.5 mL suspension for reconstitution 0.5 ml IM ONCE Qty: 1 0RF levothyroxine [Synthroid] 50 mcg tablet 50 mcg PO DAILY Qty: 90 1RF atorvastatin [Lipitor] 40 mg tablet 40 mg PO DAILY Qty: 90 1RF diclofenac sodium [Voltaren Arthritis Pain] 1 % gel 4 g topical QID Qty: 100 1RF Rx Instructions: apply to single knee, ankle, foot; for foot includes sole/toes/top of foot fluticasone propionate [Flonase Allergy Relief] 50 mcg/actuation spray,suspension 2 spray intranasal DAILY Qty: 16 0RF Rx Instructions: administer into each nostril cholestyramine (with sugar) 4 gram powder 4 g PO DAILY Qty: 348.6 0RF Rx Instructions: administer w/meal; avoid other meds within 1hr before or 4-6hr after dose hydroxyzine HCl 25 mg tablet 25 mg PO TID PRN (Reason: anxiety) Qty: 14 0RF ropinirole 0.25 mg tablet 0.25 mg PO .qhs PRN (Reason: restless leg) Qty: 30 1RF conjugated estrogens 0.625 mg/gram cream 0.625 mg vaginal DAILY Qty: 30 1RF Rx Instructions: off 5 days; repeat cycle fluoxetine 20 mg tablet 20 mg PO DAILY Qty: 60 0RF ondansetron 8 mg tablet,disintegrating 8 mg PO .q6 PRN (Reason: nausea and vomiting) Qty: 14 0RF Ativan 1 mg tablet 1 mg PO BID PRN (Reason: dizziness or vertigo) Qty: 20 0RF Discharge Orders: Discharge ED (Routine); Ordered 11/11/23 Ordered By: Gisel Kate Referrals: Mily Oliveira MD [Physician] - 1-3 days Toan Beasley MD [Primary Care Provider] - Discharge Diet: Advance as tolerated Discharge Activity: Resume usual activity Patient Instructions: Hip Pain (ED), Opioid Safety Coding Level of Care Code 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
[2023-11-11] MEDS: HYDROcodone-acetaminophen 7.5-325 mg Tablet 1 TAB PO (16:41)
--- NOTE | 2023-11-11 17:06 | CTR_ITS ---
PROCEDURE INFORMATION: Exam: CT Lumbar Spine Without Contrast Exam date and time: 11/11/2023 5:15 PM Age: 68 years old Clinical indication: Injury or trauma; Fall; Blunt trauma (contusions or hematomas) TECHNIQUE: Imaging protocol: Computed tomography of the lumbar spine without contrast. Radiation optimization: All CT scans at this facility use at least one of these dose optimization techniques: automated exposure control; mA and/or kV adjustment per patient size (includes targeted exams where dose is matched to clinical indication); or iterative reconstruction. COMPARISON: CT abdomen pelvis w con* [id number] 09/24/2023 5:02 PM RADIATION DOSE METRICS: Total DLP (mGy-cm): 667.58 FINDINGS: Bones/joints: No acute fracture. Grade 1 anterolisthesis of L4 onto L5. Mild central canal narrowing at L4-L5. Moderate bilateral neural foramina narrowing at L4-L5. L3-L4 there is mild disc bulging and moderate bilateral neural foramina stenosis. Stomach and bowel: Partially visualized diverticulosis disease. Vasculature: Ectatic dilatation of the infrarenal abdominal aorta measuring up to 27 millimeters, unchanged. Soft tissues: Unremarkable. CT/CT lumbar spine wo con* [id number] IMPRESSION: 1. No acute fracture. 2. Grade 1 anterolisthesis of L4 onto L5. 3. [id number] lumbar spondylosis.
--- NOTE | 2023-11-11 17:06 | CTR_ITS ---
PROCEDURE INFORMATION: Exam: CT Left Lower Extremity Without Contrast, Hip Exam date and time: 11/11/2023 5:18 PM Age: 68 years old Clinical indication: Injury or trauma; Fall; Blunt trauma; Hip; Left TECHNIQUE: Imaging protocol: CT of the left lower extremity without contrast was performed. Exam focused on the hip. Radiation optimization: All CT scans at this facility use at least one of these dose optimization techniques: automated exposure control; mA and/or kV adjustment per patient size (includes targeted exams where dose is matched to clinical indication); or iterative reconstruction. COMPARISON: CR XR hip LT 2-3V wo/w pel* [id number] 11/11/2023 4:10 PM RADIATION DOSE METRICS: Total DLP (mGy-cm): 386 FINDINGS: Bones/joints: No hip effusion, or inflammatory changes along left hip. Mild joint space narrowing of the left hip without femoral head ring osteophytes or buttressing. There is subchondral cystic formation and sclerosis. No acute fracture. Soft tissues: Normal. Bowel: Partially visualized diverticulosis disease. CT/CT hip LT wo con* [id number] IMPRESSION: No acute fracture.
[2023-11-11 18:44] VITALS: BP 152/70; PULSE 61; RESP 16; TEMP 36.7; O2SAT 100
--- NOTE | 2023-11-12 07:31 | DCPLANNER ---
Message sent to Ortho for a follow up on Hip pain from fall-
== END 2023-11-11 18:35 | disposition home or self-care (01) ==
PROVIDERS: Emergency Provider Emergency Medicine; PCP Family Medicine
DX: S70.02XA Contusion of left hip, initial encounter (principal); F17.210 Nicotine dependence, cigarettes, uncomplicated; W01.0XXA Fall on same level from slipping, tripping and stumbling without subsequent striking against object, initial encounter
CPT/HCPCS: 72131; 73502; 73562; 73700; 99284; E0114

== ENCOUNTER → 2023-11-28 09:06 | Outpatient (BNVA) | payer MEDICARE, MEDICAID, SELFPAY | PROVIDERS: PCP Family Medicine; Visit Provider Orthopaedic Surgery | DX: M47.896 Other spondylosis, lumbar region (principal); N20.0 Calculus of kidney | CPT/HCPCS: 72100; 99204 ==

== ENCOUNTER 2023-12-24 10:36 | Outpatient (CLI) | payer MEDICARE, MEDICAID, SELFPAY ==
--- NOTE | 2023-12-24 11:00 | MR_ITS ---
WS: [id number] MRI LUMBAR SPINE NONCONTRAST TECHNIQUE: Sagittal T1, T2 and STIR imaging. Axial T1 and T2 imaging. CLINICAL INFORMATION: back pain COMPARISON: CT 11/11/2023 FINDINGS: Slight exaggeration of the normal lumbar lordosis. Grade 1 anterolisthesis L4 on L5.Normal bone marro w signal. No acute appearing compression fractures. L1-L2: Minimal annular bulging. Mild facet arthropathy. L2-L3: Mild annular bulging. Slight effacement of the ventral thecal sac. Small bilateral foraminal p rotrusions with mild bilateral foraminal narrowing RIGHT greater than LEFT. Moderate facet arthropath y. L3-L4: Mild annular bulging. Slight effacement of the ventral thecal sac. Mild central canal stenosis . LEFT foraminal protrusion impinges the exiting LEFT L3 nerve root. Moderate LEFT and mild RIGHT for aminal narrowing. L4-L5: Grade 1 anterolisthesis with mild to moderate central canal stenosis. Moderate facet arthropat hy with ligamentum flavum hypertrophy. Bilateral facet effusions. Prominent LEFT foraminal disc protr usion impinges the exiting LEFT L4 nerve root. Mild RIGHT foraminal narrowing. L5-S1: Mild annular bulging. Slight effacement of the ventral thecal sac. Spinal canal and foramen ar e patent. Moderate facet arthropathy. Mild central canal stenosis on the cervical spine sales management intern imaging with disc osteophyte protrusions at C 4-C6 with slight indentation on the cervical cord. Recommend further evaluation with cervical spine M RI. Sigmoid diverticulosis. MR/MR lumbar spine wo con* [id number] IMPRESSION: 1. Grade 1 anterolisthesis L4 on L5 with mild to moderate central canal stenos is and impingement traversing LEFT greater than RIGHT L5 nerve roots. Moderate facet arthropathy at this level with small facet effusions. 2. Prominent LEFT L4-5 foraminal protrusion impinges the exiting LEFT L4 nerve root. 3. Mild central canal stenosis L3-4. Prominent LEFT foraminal protrusion at th is level impinges the exiting LEFT L3 nerve root. 4. Small RIGHT foraminal protrusion L2-3 impinges the exiting RIGHT L2 nerve r oot. 5. Central canal stenosis on the cervical spine sales management intern imaging. Recommend furth er evaluation with cervical spine MRI.
== END 2023-12-24 10:37 | disposition home or self-care (01) ==
LOC: RAD 10:37
PROVIDERS: PCP Family Medicine; Visit Provider Orthopaedic Surgery
DX: M40.56 Lordosis, unspecified, lumbar region (principal); M54.9 Dorsalgia, unspecified; M47.816 Spondylosis without myelopathy or radiculopathy, lumbar region; M48.061 Spinal stenosis, lumbar region without neurogenic claudication
CPT/HCPCS: 72148

== ENCOUNTER → 2023-12-30 07:57 | Outpatient (BNVA) | payer MEDICARE, MEDICAID, SELFPAY | PROVIDERS: PCP Family Medicine; Visit Provider Nurse Practitioner | DX: M54.42 Lumbago with sciatica, left side (principal); M43.16 Spondylolisthesis, lumbar region; M70.62 Trochanteric bursitis, left hip | CPT/HCPCS: 99213 ==

== ENCOUNTER → 2024-01-07 10:18 | Outpatient (BNVA) | payer MEDICARE, MEDICAID, SELFPAY | PROVIDERS: PCP Family Medicine; Visit Provider Orthopaedic Surgery | DX: M43.16 Spondylolisthesis, lumbar region (principal) | CPT/HCPCS: 99214 ==

== ENCOUNTER → 2024-01-14 11:23 | Outpatient (BNVA) | payer MEDICARE, MEDICAID, SELFPAY | PROVIDERS: PCP Family Medicine; Visit Provider Nurse Practitioner | DX: M79.671 Pain in right foot (principal); M25.474 Effusion, right foot | CPT/HCPCS: 73630 ==

== ENCOUNTER → 2024-02-18 08:12 | Outpatient (BNVA) | payer MEDICARE, MEDICAID, SELFPAY | PROVIDERS: PCP Family Medicine; Visit Provider Nurse Practitioner | DX: M54.42 Lumbago with sciatica, left side (principal); M70.62 Trochanteric bursitis, left hip; M43.16 Spondylolisthesis, lumbar region | CPT/HCPCS: 99214 ==

== ENCOUNTER → 2025-03-03 09:32 | Outpatient (BNVA) | payer MEDICARE, MEDICAID, SELFPAY | DX: E78.5 Hyperlipidemia, unspecified (principal); R39.9 Unspecified symptoms and signs involving the genitourinary system; N39.0 Urinary tract infection, site not specified | CPT/HCPCS: 80053; 80061; 81000; 85025; 87086 ==

== ENCOUNTER → 2025-03-17 10:35 | Outpatient (BNVA) | payer MEDICARE, MEDICAID, SELFPAY | PROVIDERS: Visit Provider Surgery | DX: Z12.11 Encounter for screening for malignant neoplasm of colon (principal) | CPT/HCPCS: 99204; 99214 ==

== ENCOUNTER 2025-03-18 13:05 | Outpatient (CLI) | payer OTHER, MEDICAID, SELFPAY ==
--- NOTE | 2025-03-18 13:30 | CT_ITS ---
WS: [id number] LDCT LUNG CANCER SCREENING HISTORY: screening TECHNIQUE: Axial imaging performed from the apices to 1 cm below the costophrenic angles. Coronal and sagittal reformats are submitted with axial MIP series. All CT scans at [facility] use at least one of these dose optimization techniques: automated exposure control; mA and/or kV adjustment per patient size (includes targeted exams where dose is matched to clinical indication); or iterative reconstruction. DLP: 51.60 mGy.cm DIvol: Mean CTDIvol: 1.00 (mGy) COMPARISON: 07/26/2023 Diagnostic quality: Satisfactory Lungs: Hyperinflated lungs. Numerous bilateral subcentimeter pulmonary nodules. Majority of these nodules are calcified. The largest nodule that is noncalcified measures 3 mm in the RIGHT upper lobe. No mass or endobronchial lesions. No new nodule since 07/26/2023. Heart: Normal size heart with no pericardial effusion.. Other findings: Atherosclerosis aorta. No mediastinal or hilar adenopathy. Normal size aorta and pulmonary artery. Prior cholecystectomy. No adrenal mass. Suprarenal aortic calcifications and splenic artery calcifications. Spleen granuloma. CT/CT lung screening [id number] IMPRESSION: LUNG-RADS: 2-Benign Appearance or Behavior FOLLOW UP: 12 Month: Continue annual screening with LDCT OTHER FINDINGS (S MODIFIER): None.
== END 2025-03-18 13:06 | disposition home or self-care (01) ==
LOC: RAD 13:07
DX: Z12.2 Encounter for screening for malignant neoplasm of respiratory organs (principal); F17.210 Nicotine dependence, cigarettes, uncomplicated; I70.0 Atherosclerosis of aorta; Z90.49 Acquired absence of other specified parts of digestive tract; I35.8 Other nonrheumatic aortic valve disorders; D73.89 Other diseases of spleen
CPT/HCPCS: 71271

== ENCOUNTER → 2025-03-31 09:22 | Outpatient (BNVA) | payer OTHER, MEDICAID, SELFPAY | PROVIDERS: Visit Provider Nurse Practitioner | DX: R39.9 Unspecified symptoms and signs involving the genitourinary system (principal) | CPT/HCPCS: 81000; 87086 ==

== ENCOUNTER → 2025-04-05 10:13 | Outpatient (BNVA) | payer OTHER, MEDICAID, SELFPAY | PROVIDERS: Visit Provider Dermatology | DX: L57.8 Other skin changes due to chronic exposure to nonionizing radiation (principal); D18.01 Hemangioma of skin and subcutaneous tissue; D48.5 Neoplasm of uncertain behavior of skin; L57.0 Actinic keratosis | CPT/HCPCS: 11102; 17000; 99203 ==

== ENCOUNTER → 2025-04-07 10:07 | Outpatient (BNVA) | payer OTHER, MEDICAID, SELFPAY | DX: R39.9 Unspecified symptoms and signs involving the genitourinary system (principal); R30.0 Dysuria | CPT/HCPCS: 81000; 87086 ==